=== PATIENT | male | born 1980 | race Caucasian/White ===

== ENCOUNTER → 2016-11-19 | Outpatient (CLI) | payer OTHER ==
--- NOTE | 2016-11-19 08:33 | DIAGNOSTIC IMAGING REPORT ---
ABDOMEN COMPLETE (US) CLINICAL HISTORY: Analyzed abdominal pain COMPARISON STUDY: No previous studies for comparison. FINDINGS: The pancreas appears normal as visualized. The gallbladder appears sonographically normal. The liver is of increased echogenicity, nonspecific finding most often seen in hepatic steatosis. No splenic masses are visualized. The spleen measures 10.5 cm in diameter. There is no ductal dilatation. The common bile duct measures 3 mm. The right kidney measures 11.8 cm in length. The left kidney measures 11.2 cm in length. There is no hydronephrosis. An equivocal 18 mm right cortical renal mass as visualized in image #34/46 was not confirmed on additional images and is felt to be artifactual. There is a 6 mm echogenic focus within the lower pole of the right kidney possibly representing a calculus. There is no abdominal aortic dilatation. The IVC is patent. IMPRESSION: 1. Increased hepatic echogenicity, suggestive of hepatic steatosis 2. Ultrasonographically normal gallbladder pancreas 3. No ductal dilatation 4. Possible 6 mm lower pole right renal calculus Electronically signed by: Elver Flroes M.D. 11/19/2016 8:31 AM Dictated Date/Time: 11/19/2016 8:29 AM
== END | disposition home or self-care (01) ==
LOC: C.ULTR 07:54
PROVIDERS: ATTEND Internal Medicine Gastroenterology
DX: R14.0 Abdominal distension (gaseous) (principal); R19.4 Change in bowel habit; R14.2 Eructation; R10.9 Unspecified abdominal pain; N20.0 Calculus of kidney